=== PATIENT | female | born 1980 | race Caucasian/White ===

== ENCOUNTER 2017-12-17 19:29 | Inpatient (IN) | payer MEDICAID, OTHER ==
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
[2017-12-17 23:10] LABS: Amphetamine Screen,Urine Not Detected (NotDetected); Barbiturate Screen,Urine Not Detected (NotDetected); Benzodiazepines Screen,Urine Not Detected (NotDetected); Cocaine Screen,Urine Not Detected (NotDetected); Methadone Screen, Urine Not Detected (NotDetected); Opiate Screen,Urine Not Detected (NotDetected); Oxycodone Screen, Urine Not Detected (NotDetected); Phencyclidine Screen,Urine Not Detected (NotDetected); Tricyclic Antidepressant,Urine Not Detected (NotDetected); Urn Cannabinoid Scrn Detected (NotDetected)
[2017-12-18] MEDS ORDERED: ZIPRASIDONE 20 MG VIAL IM PRN (00:19)
[2017-12-18] MEDS ORDERED: MAG HYDROX/AL HYDROX/SIMETH 30 ML CUP PO PRN (00:19)
[2017-12-18] MEDS ORDERED: MAGNESIUM HYDROXIDE 2,400 MG/10 ML CUP PO PRN (00:19)
[2017-12-18] MEDS ORDERED: LORazepam 2 MG/ML INJ IM PRN (00:22)
[2017-12-18 01:29] LABS: Appearance,Urine Cloudy (Clear); Bacteria,Urine Moderate /hpf; Bilirubin,Urine Negative (Negative); Blood,Urine Small (Negative); Color,Urine Yellow; Glucose,Urine (UA) Negative (Negative); Ketones,Urine Negative (Negative); Leukocyte Esterase,Urine Small (Negative); Mucus,Urine Many /hpf; Nitrite,Urine Positive (Negative); Protein,Urine Trace (Negative); RBC,Urine 8 /hpf (0-5); Specific Gravity,Urine 1.013 (1.001-1.035); Squamous Epithelial Cell,Urine 5 /hpf (0-4); Urobilinogen,Urine <2.0 mg/dL (<2.0); WBC,Urine 12 /hpf (0-5)
[2017-12-18] MEDS: LORazepam 1 MG TAB PO PRN ×2 (05:28→14:25)
--- NOTE | 2017-12-18 05:46 | P.PN ---
Progress Note - Text Progress Note Date: 12/18/17 I interviewed the patient in the morning of 12/18/2017 at 5:30 in the morning upon RN request medical consult. Within the first 2 minutes of my interview and when I was just about to ask her about her medical history and she takes a prescription medications she became very paranoid and exploded started screaming throwing books around and rushed out of the room. Mental health unit RN was in the room with me during the interview. Patient will be evaluated from medical standpoint a later time once she is more mentally stable
[2017-12-18] MEDS ORDERED: NICOTINE 14MG/24HR PATCH TRANSDERM SCH (09:00)
--- NOTE | 2017-12-18 11:17 | P.HPMEDMHU ---
History of Present Illness H&P Date: 12/18/17 Chief Complaint: Paranoia This 37-year-old female with no history of medical problems that was admitted with paranoia. Patient was very aggressive with Dr. Prakash yesterday upon attempt to evaluate her. Review of Systems Denies any chest pain no palpitations no fever no chills no shortness of breath all 10 systems reviewed were negative except as mentioned in HPI Past Medical History Past Medical History: Hypertension Additional Past Medical History / Comment(s): IBS, ENDOMETRIOSIS, opiate addiction, ADHD, Hx of HTN but no meds. History of Any Multi-Drug Resistant Organisms: None Reported Past Surgical History: Tubal Ligation Additional Past Surgical History / Comment(s): LAPAROSCOPY, D & C, ORAL SURGERY Past Anesthesia/Blood Transfusion Reactions: Motion Sickness Past Psychological History: ADD/ADHD, Anxiety, Depression Smoking Status: Current every day smoker Past Alcohol Use History: Occasional Past Drug Use History: Marijuana, Opiates, Prescription Drug Abuse - Past Family History Father Family Medical History: Cancer Additional Family Medical History / Comment(s): Father at age 35 from cancer of the mouth. Mother Family Medical History: No Reported History Additional Family Medical History / Comment(s): Mother is age 70 with no major medical problems. Brother(s) Family Medical History: No Reported History Additional Family Medical History / Comment(s): Patient had 2 brothers. One of a motor vehicle accident at age 35 and 1 has no major medical problems. Patient has 1 sister with no major medical problems. Medications and Allergies Home Medications Medication Instructions Recorded Confirmed Type hydrOXYzine PAMOATE [Vistaril] 50 mg PO HS PRN 30 Days cap 12/01/15 01/18/16 Rx ARIPiprazole [Abilify] 30 mg PO DAILY #20 tab 01/27/16 Rx OLANZapine ODT [ZyPREXA Zydis] 5 mg PO QID PRN #120 tab 01/27/16 Rx Venlafaxine HCl ER [Effexor XR] 150 mg PO DAILY #30 cap.er.24h 01/27/16 Rx busPIRone HCl [Buspar] 15 mg PO TID #90 tab 01/27/16 Rx clonazePAM [KlonoPIN] 0.5 mg PO QID #120 tab 01/27/16 Rx hydrOXYzine PAMOATE [Vistaril] 50 mg PO HS PRN #60 cap 01/27/16 Rx Allergies Allergy/AdvReac Type Severity Reaction Status Date / Time No Known Allergies Allergy Verified 01/18/16 07:32 Physical Exam Vitals: Vital Signs Temp Pulse Pulse Resp BP BP Pulse Ox 12/18/17 01:43 97.6 F 83 16 145/88 12/18/17 01:00 98.6 F 71 20 135/65 99 12/17/17 19:42 97.9 F 93 18 148/84 98 Intake and Output 12/17/17 12/18/17 12/18/17 22:59 06:59 14:59 Other: Weight 117.934 kg 93.7 kg 93.7 kg - Constitutional General appearance: no acute distress - EENT Eyes: EOMI, PERRLA - Neck Neck: no lymphadenopathy, normal ROM - Respiratory Respiratory: bilateral: CTA - Cardiovascular Rhythm: regular Heart sounds: normal: S1, S2 ankle Peripheral Edema: absent: None leg Peripheral Edema: absent: None - Gastrointestinal General gastrointestinal: normal bowel sounds - Integumentary Integumentary: normal, no rash - Neurologic Neurologic: CNII-XII intact - Musculoskeletal Musculoskeletal: gait normal - Psychiatric Psychiatric: A&O x's 3, appropriate affect Cranial Nerve Examination - Cranial Nerves Cranial Nerve II- Optic: Intact Cranial Nerve III- Oculomotor: Intact Cranial Nerve IV- Trochlear: Intact Cranial Nerve V- Trigeminal: Intact Cranial Nerve - Abducens: Intact Cranial Nerve VII- Facial: Intact Cranial Nerve VIII- Auditory: Intact Cranial Nerve IX- Glossopharyngeal: Intact Cranial Nerve X- Vagus: Intact Cranial Nerve XI- Accessory: Intact Cranial Nerve XII- Hypoglossal: Intact Results Labs: Abnormal Lab Results - Last 24 Hours (Table) 12/17/17 12/17/17 Range/Units 22:46 22:46 Urine Appearance Cloudy H (Clear) Urine Protein Trace H (Negative) Urine Blood Small H (Negative) Urine Nitrite Positive H (Negative) Ur Leukocyte Esterase Small H (Negative) Urine RBC 8 H (0-5) /hpf Urine WBC 12 H (0-5) /hpf Ur Squamous Epith Cells 5 H (0-4) /hpf Urine Bacteria Moderate H (None) /hpf Urine Mucus Many H (None) /hpf U Marijuana (THC) Screen Detected H (NotDetected) Assessment and Plan (1) Delusion Narrative/Plan: per psych Current Visit: Yes Status: Acute Code(s): F22 - DELUSIONAL DISORDERS SNOMED Code(s): 4114353 (2) Suicidal ideation Narrative/Plan: Per psych Current Visit: Yes Status: Acute Code(s): R45.851 - SUICIDAL IDEATIONS SNOMED Code(s): 3725090
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
[2017-12-18] MEDS: LURASIDONE 40 MG TAB PO SCH (14:25)
[2017-12-18] MEDS: SERTRALINE 50 MG TAB PO SCH (14:25)
[2017-12-18] MEDS: NICOTINE 14MG/24HR PATCH TRANSDERM SCH (14:58)
[2017-12-18 16:26] VITALS: BMI 31.4
[2017-12-19] MEDS: LORazepam 1 MG TAB PO PRN ×3 (01:50→20:00)
[2017-12-19] MEDS: NICOTINE 14MG/24HR PATCH TRANSDERM SCH (07:59)
[2017-12-19] MEDS: LURASIDONE 40 MG TAB PO SCH (08:00)
[2017-12-19] MEDS: SERTRALINE 50 MG TAB PO SCH (08:00)
[2017-12-19 09:26] LABS: Basophils % (A) 0 %; Eosinophils # (A) 0.1 k/uL (0-0.7); Eosinophils % (A) 1 %; HCT 43.5 % (34.0-46.0); HGB 14.4 gm/dL (11.4-16.0); Lymphocytes % (A) 22 %; MCH 26.9 pg (25.0-35.0); MCV 81.6 fL (80.0-100.0); Monocytes # (A) 0.4 k/uL (0-1.0); Monocytes % (A) 4 %; Neutrophils # (A) 6.5 k/uL (1.3-7.7); Neutrophils % (A) 72 %; Platelet Count 299 k/uL (150-450); RBC 5.33 m/uL (3.80-5.40)
[2017-12-19 09:40] LABS: Blood Urea Nitrogen 20 mg/dL (7-17); Calcium 9.9 mg/dL (8.4-10.2); Carbon Dioxide 24 mmol/L (22-30); Chloride 104 mmol/L (98-107); Cholesterol 150 mg/dL (<200); Glucose 114 mg/dL (74-99); HDL Cholesterol 59 mg/dL (40-60); LDL Cholesterol,Calculated 72 mg/dL (0-99); Potassium 3.9 mmol/L (3.5-5.1); Triglycerides 96 mg/dL (<150)
[2017-12-19 10:13] LABS: Anion Gap 16 mmol/L; Sodium 144 mmol/L (137-145)
--- NOTE | 2017-12-19 11:53 | P.PN ---
Progress Note - Text Progress Note Date: 12/19/17 Interval History: Patient is a 37-year-old female who was seen today and reports that she was feeling suicidal and not sleeping on the outside and depressed. She states that she was very paranoid that her mother was trying to hurt her for insurance money, that others were trying to hurt her for a variety of different reasons. She states that she feels everyone here once her dad and also reported that when she is told she has a phone call and goes to the phone there is no one on the phone and feels that people here are also trying to do things to her. She states that she has not been taking her medicine as an outpatient and can't recall when she was last seen for follow-up care at [facility]. She states that she was taking narcotics on the outside as well. Patient states that she is not feeling currently suicidal. She states that she doesn't need to be in the hospital and she could do just as well and she was discharged and her meds were given to her as an outpatient. She states she slept last night because she "cooks stuff". She stated that everyone here needs to "stop your shit". Mental Status: Appearance/Attitude: Patient is casually dressed, makes intermittent eye contact and is superficially cooperative. Behavior: Patient does not display any psychomotor agitation or retardation but is easily irritated Speech/Language: Patient's speech is spontaneous and normal volume and rhythm and she is coherent. Thought Process: Patient is goal-directed there is no evidence of loose association or flight of ideas. Thought Content: Patient denies auditory or visual hallucinations but expresses numerous paranoid thoughts regarding her mother trying to hurt her for insurance money, that staff is doing things to her because everybody wants her . Patient states that she's slept last night because she took stuff and states that she doesn't need to be in the hospital she can have her medication as an outpatient. Suicidal/Homicidal Ideation: Patient denies any current suicidal thoughts and denies any current homicidal ideation Sensorium/Cognition: Patient is alert and oriented to person, place, and time and her recent and remote memory are grossly intact Mood/Affect: Patient's mood remains guarded and irritable and her affect is appropriate to her mood Insight/Judgment: Patient's insight and judgment are limited Assessment: Patient was placed on all one-to-one supervision yesterday due to her threats of hurting herself, she remains extremely paranoid feeling that everyone here is trying to harm her and wants her , she feels that she doesn 't need to be in the hospital and could easily be treated as an outpatient. Patient has been off of her medication for an unknown period of time and is been not seen in follow-up for an unknown period of time. Patient in the past was being treated with long-acting injectable Abilify. Patient reports that she has been taking her medication but sees no change on them. Plan: Patient will continue on with 2-40 mg in the morning, Zoloft 50 mg daily and we'll continue to assess her response and adjust medications to target her symptoms of depression and psychosis. Patient continues to require hospitalization to further stabilize her mood. We'll continue the patient on one-to-one supervision at this time.
[2017-12-19 16:29] LABS: Amorphous Sediment,Urine Rare /hpf; Appearance,Urine Cloudy (Clear); Bacteria,Urine Many /hpf; Bilirubin,Urine Negative (Negative); Blood,Urine Moderate (Negative); Color,Urine Yellow; Glucose,Urine (UA) Negative (Negative); Ketones,Urine Negative (Negative); Leukocyte Esterase,Urine Moderate (Negative); Mucus,Urine Many /hpf; Nitrite,Urine Positive (Negative); PH, Urine 6.5 (5.0-8.0); Protein,Urine 1+ (Negative); RBC,Urine 41 /hpf (0-5); Specific Gravity,Urine 1.026 (1.001-1.035); Urobilinogen,Urine <2.0 mg/dL (<2.0); WBC,Urine 14 /hpf (0-5)
[2017-12-20] MEDS: LORazepam 1 MG TAB PO PRN ×3 (03:05→20:45)
[2017-12-20] MEDS: NICOTINE 14MG/24HR PATCH TRANSDERM SCH (08:25)
[2017-12-20] MEDS: LURASIDONE 40 MG TAB PO SCH (08:25)
[2017-12-20] MEDS: SERTRALINE 50 MG TAB PO SCH (08:25)
--- NOTE | 2017-12-20 12:11 | P.PN ---
Progress Note - Text Progress Note Date: 12/20/17 Interval History: Patient is a 37-year-old female who was seen today and reports that she is sleeping and eating well. She states that she is trying to go to groups but is unable to because the other patients bother her. Patient states that she was using Bode's, Adipex and marijuana prior to her admission. Patient continues to report that people are trying to hurt her, is suspicious of patient's. She denied any current suicidal thoughts. Patient continues to also request that she be discharged stating that she is doing fine and doesn't need to be here. 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 Speech/Language: Patient's speech is spontaneous and normal volume and rhythm and she is coherent Thought Process: Patient is goal-directed there is no evidence of loose association or flight of ideas Thought Content: Patient denies any auditory or visual hallucinations, patient remains paranoid stating that she cannot go to groups because the other patients bother her, she is still suspicious of staff and other patients and still continues to feel that people are trying to hurt her. She reports that she was using Bode's, Adipex and marijuana on the outside prior to her admission. She states that she is sleeping and eating fine. She states that she is no longer feeling suicidal. Patient also states that she was working as a nurse one week prior to her admission in [facility]. Suicidal/Homicidal Ideation: She denies any current suicidal or homicidal ideation. Sensorium/Cognition: Patient is alert and oriented to person, place, and time and her recent and remote memory are grossly intact Mood/Affect: Patient's mood remains guarded and irritable and her affect is appropriate to her mood Insight/Judgment: Patient's insight and judgment are fair Assessment: Patient reports no further suicidal ideation, she states that she is unable to attend groups because the other patients bother her and she is suspicious of staff and others trying to hurt her. She states that she slept and ate well. 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 Patient also continues to request discharge, stating that there is nothing wrong with her. Patient repeat UA and he didn't show evidence of an infection she was begun on Keflex and a urine culture was also ordered. Plan: Patient will be discontinued from one-to-one supervision, her limited will be increased to 60 mg daily to target her paranoid ideation and continue on Zoloft 50 mg at this time I am not going to increase her antidepressant. Patient was encouraged to attend groups and activities. Patient also has a pending urine culture and has been placed on Keflex. Patient continues to require hospitalization to further target her paranoid ideation and depressed mood.
[2017-12-20] MEDS: CEPHALEXIN 500 MG CAP PO SCH (20:45)
[2017-12-21] MEDS: LORazepam 1 MG TAB PO PRN ×3 (03:39→20:06)
[2017-12-21] MEDS: ACETAMINOPHEN TAB 325 MG TAB PO PRN ×2 (03:39→20:05)
[2017-12-21] MEDS: CEPHALEXIN 500 MG CAP PO SCH ×2 (08:04→20:07)
[2017-12-21] MEDS: LURASIDONE 40 MG TAB PO SCH (08:05)
[2017-12-21] MEDS: NICOTINE 14MG/24HR PATCH TRANSDERM SCH (08:05)
[2017-12-21] MEDS: SERTRALINE 50 MG TAB PO SCH (08:05)
--- NOTE | 2017-12-21 12:42 | P.PN ---
Progress Note - Text Progress Note Date: 12/21/17 Interval History: Patient is a 37-year-old female who was seen today who reports that she fell asleep right away last evening after taking Ativan and felt that she did sleep okay. She felt that the environment here is better than last night and that she is less suspicious of her family. She thought that staff had been nicer to her. She states that she is less irritable. Patient has not been attending groups or activities stating that she dislikes them. She reports no suicidal thoughts and states she is feeling less depressed. Mental Status: Appearance/Attitude: Patient is casually dressed, makes intermittent eye contact and is superficially cooperative Behavior: Patient does not exhibit any psychomotor agitation or retardation. Speech/Language: Speech is spontaneous however she responds in brief statements with little elaboration, she speaks in a normal volume and rhythm and is coherent Thought Process: Patient does not exhibit any loose association or flight of ideas she is goal-directed but non-elaborative in her responses. Thought Content: Patient denies auditory or visual hallucinations and states that she thought the environment here was better last night and states that she is less suspicious of her family but cannot elaborate further. Patient states that she slept last evening, she reports her appetite is fair. She states that she is not going to groups or activities. Suicidal/Homicidal Ideation: Patient denies any suicidal or homicidal ideation at this time. Sensorium/Cognition: Patient is alert and oriented to person, place, and time and her recent and remote memory are grossly intact Mood/Affect: Patient's mood remains guarded and irritable and her affect is appropriate to her mood Insight/Judgment: Patient's insight and judgment are limited Assessment: Patient reports that the environment is better here last night she continues to not attend groups or activities and states that she is no longer having suicidal ideation and is feeling less depressed and less irritable. She thinks the people here have been nicer to her. Later she requested that [facility] paperwork be done and became upset when I discussed with her that I could not complete the paperwork only provide her with a note stating the dates that she was hospitalized. Patient has not been attending groups or activities. Patient slept 4 hours last evening. Plan: Patient will continue on Latuda 60 mg and Zoloft 50 mg and will add melatonin to assist with her sleep, patient continues to require hospitalization to further stabilize her mood and psychotic symptoms
[2017-12-21] MEDS: IBUPROFEN 200 MG TAB PO PRN ×2 (17:48→23:00)
[2017-12-21] MEDS: MELATONIN 3 MG TABLET PO SCH (20:06)
[2017-12-22] MEDS: LORazepam 1 MG TAB PO PRN ×3 (02:57→20:46)
[2017-12-22] MEDS: CEPHALEXIN 500 MG CAP PO SCH ×2 (08:07→20:46)
[2017-12-22] MEDS: LURASIDONE 40 MG TAB PO SCH (08:07)
[2017-12-22] MEDS: NICOTINE 14MG/24HR PATCH TRANSDERM SCH (08:07)
[2017-12-22] MEDS: SERTRALINE 50 MG TAB PO SCH (08:07)
[2017-12-22] MEDS: IBUPROFEN 200 MG TAB PO PRN (09:33)
--- NOTE | 2017-12-22 10:43 | P.PN ---
Progress Note - Text Progress Note Date: 12/22/17 Reviewed sensitivities for E. Coli UTI reviewed and it is sensitive to cefazolin so she can be treated with Keflex for 3 days with a non complicated UTI. She will completed treatment after her morning dose of Keflex on 12/23.
--- NOTE | 2017-12-22 12:37 | P.PN ---
Progress Note - Text Progress Note Date: 12/22/17 Interval History: Patient is a 37-year-old female who was seen today and she reports that she has been attending some groups. She states that she slept about 5 hours last night and took Ativan at 3 AM and is feeling slightly hung over this morning. She states that the panicky thoughts that she had before the people were trying to hurt her are no longer there. She states that she feels people have not been trying to hurt her here but they have been rude to her while she is been here. Patient denies any auditory hallucinations and states that she is not feeling paranoid and suspicious. She feels that her mood is more stable and she is not feeling depressed. Patient had not been taking any of her medications prior to admission nor had she been seen in follow -up for psychiatric care prior to her admission. She states that she had been buying Langley's and Adipex on the street as well as using marijuana and alcohol. Mental Status: Appearance/Attitude: Patient is casually dressed, makes good eye contact and is cooperative. Behavior: Patient does not exhibit any psychomotor agitation or retardation. Speech/Language: Patient's speech is spontaneous and of normal volume and rhythm and she is coherent. Thought Process: Patient is goal-directed there is no evidence of loose association or flight of ideas Thought Content: Patient denies any auditory hallucinations or visual hallucinations and no paranoid or delusional ideation is elicited. She reports that those panicky thoughts that she was having the people were trying to hurt her specifically her family, staff here are thoughts that she no longer has. She states that she thinks people of been rude to her here but not trying to harm her. Patient states that she had not been compliant with medication or follow-up prior to her discharge. Patient also admits to buying Langley's, Adipex from the street and using marijuana and alcohol prior to her admission. Patient reports that she woke up at 3 AM last evening and took Ativan to return to sleep but feels hung over this morning. Patient reports her appetite is good. Suicidal/Homicidal Ideation: Patient denies any suicidal or homicidal ideation at this time Sensorium/Cognition: Patient is alert and oriented to person, place, and time and her recent and remote memory are grossly intact Mood/Affect: Patient's mood is much less guarded, she reports she is feeling more stable and her affect is appropriate to her mood Insight/Judgment: Patient's insight and judgment are fair Assessment: Patient reports attending some groups, we discussed her use of Langley , marijuana, Adipex and alcohol and she was open to attending an outpatient rehab program and declined an inpatient program. She was also open to following up as an outpatient with counselng. Patient's urine culture was positive for E. coli and per the bilingual medical assistant she can continue on Keflex and till tomorrow morning's dose when it will be discontinued. Patient reports no side effects from the medication and states that she is no longer feeling paranoid, her mood is more stable. Plan: Patient will continue on Latuda 60 mg, Zoloft 50 mg and we discussed discharge tomorrow with follow-up to an outpatient rehab program as well as outpatient psychiatric follow-up. We will discontinue patient's Keflex after her morning dose tomorrow morning. Patient was agreeable with this plan.
[2017-12-22] MEDS: IBUPROFEN 400 MG TAB PO PRN (13:39)
[2017-12-22] MEDS: MELATONIN 3 MG TABLET PO SCH (20:46)
[2017-12-23 07:20] VITALS: BP 116/64; PULSE 73; RESP 16; TEMP 97.8
[2017-12-23] MEDS: LURASIDONE 40 MG TAB PO SCH (08:47)
[2017-12-23] MEDS: NICOTINE 14MG/24HR PATCH TRANSDERM SCH (08:48)
[2017-12-23] MEDS: SERTRALINE 50 MG TAB PO SCH (08:49)
[2017-12-23] MEDS: CEPHALEXIN 500 MG CAP PO SCH (08:49)
[2017-12-23] MEDS: IBUPROFEN 400 MG TAB PO PRN (08:50)
--- NOTE | 2017-12-23 10:34 | P.DS ---
Providers Date of admission: 12/18/17 00:01 Expected date of discharge: 12/23/17 Attending physician: Aimee Bacon MD Consults: 12/18/17 00:19 Consult Physician Routine Consulting Provider: Patric Salcedo Consult Reason/Comments: H and P, Eval and Tx, r/o metabolic disorder Do you want consulting provider notified?: Yes Primary care physician: Stated None Hospital Course: Discharge Diagnosis: Major depressive disorder, recurrent severe with psychotic features; opioid use disorder, mild; cannabis use disorder, mild Reason for Admission: Patient was brought to the emergency room by ethics officer stating that patient was asking the police officers to shoot her because she wants to . Patient also made some superficial cuts to her wrist. Patient also reported that everybody states that she is having crazy thoughts. She reported that she felt like she was picking up things that people aren't saying and feels that people are against her. She reported to me that she thought that her mother was trying to kill her to get her insurance benefits, she thought that everyone was out to get her. She felt that everyone hated her. Patient was unable to state whether she was suicidal saying "I don' t know". She could not report if she would be safe on the inpatient unit and not hurt herself. Stating "if I want to do it I want to get it done". Patient had ideas of reference on admission relating that she heard things on the radio and it was something to do with her. She denied any auditory or visual hallucinations on admission. Patient had not been taking her medications as an outpatient, had been using Currie's, marijuana and Adipex-P prior to her admission. Patient also reported to me that she can't recall the last time that she was [facility]. Patient has been admitted in the past to this hospital, and stated she didn't know if she had had suicide attempts in the past. Hospital Course: patient was admitted on a voluntary basis, placed on one-to- one suicide precautions and was ordered group and activity therapy. Routine laboratory studies as well as a medical consultation was obtained. Patient was agreeable to starting medicine and was begun on Latuda 40 mg and Zoloft 50 mg to target her symptoms. Patient after several days on the unit was able to calm off of one-to-one supervision. Patient initially was not attending groups or activities but eventually did begin to attend some of the groups and activities. Patient continued initially to express paranoid ideation thinking that the staff were against her, that people were rude to her and her Latuda was increased to 60 mg. Patient did not report any further suicidal ideation and became less guarded and less paranoid. Patient was also placed on melatonin 3 mg at bedtime to assist with her sleep. Patient reported no side effects from the medication, was not reporting any paranoid ideation no further suicidal ideation, was reporting no longer feeling as depressed and was less guarded. Patient was no longer irritable and had been participating in some groups and activities. Patient was treated for a urinary tract infection with Keflex in the course of treatment was completed in the hospital. Patient did not exhibit any withdrawal symptoms during her hospital admission. Patient felt that she was ready for discharge and was agreeable to [facility] for both [facility] care as well as substance use. Allergies No Known Allergies Allergy (Verified 12/23/17 09:00) Laboratory Last Values WBC 9.0 k/uL (3.8-10.6) 12/19/17 08:59 RBC 5.33 m/uL (3.80-5.40) 12/19/17 08:59 Hgb 14.4 gm/dL (11.4-16.0) 12/19/17 08:59 Hct 43.5 % (34.0-46.0) 12/19/17 08:59 MCV 81.6 fL (80.0-100.0) 12/19/17 08:59 MCH 26.9 pg (25.0-35.0) 12/19/17 08:59 MCHC 33.0 g/dL (31.0-37.0) 12/19/17 08:59 RDW 13.0 % (11.5-15.5) 12/19/17 08:59 Plt Count 299 k/uL (150-450) 12/19/17 08:59 Neutrophils % 72 % 12/19/17 08:59 Lymphocytes % 22 % 12/19/17 08:59 Monocytes % 4 % 12/19/17 08:59 Eosinophils % 1 % 12/19/17 08:59 Basophils % 0 % 12/19/17 08:59 Neutrophils # 6.5 k/uL (1.3-7.7) 12/19/17 08:59 Lymphocytes # 2.0 k/uL (1.0-4.8) 12/19/17 08:59 Monocytes # 0.4 k/uL (0-1.0) 12/19/17 08:59 Eosinophils # 0.1 k/uL (0-0.7) 12/19/17 08:59 Basophils # 0.0 k/uL (0-0.2) 12/19/17 08:59 Sodium 144 mmol/L (137-145) 12/19/17 08:59 Potassium 3.9 mmol/L (3.5-5.1) 12/19/17 08:59 Chloride 104 mmol/L (98-107) 12/19/17 08:59 Carbon Dioxide 24 mmol/L (22-30) 12/19/17 08:59 Anion Gap 16 mmol/L 12/19/17 08:59 BUN 20 mg/dL (7-17) H 12/19/17 08:59 Creatinine 0.70 mg/dL (0.52-1.04) 12/19/17 08:59 Est GFR (CKD-EPI)AfAm >90 (>60 ml/min/1.73 sqM) 12/19/17 08:59 Est GFR (CKD-EPI)NonAf >90 (>60 ml/min/1.73 sqM) 12/19/17 08:59 Glucose 114 mg/dL (74-99) H 12/19/17 08:[address] Glu mg/dL 97 12/19/17 08:59 Hemoglobin A1c 5.0 % (4.0-6.0) 12/19/17 08:59 Calcium 9.9 mg/dL (8.4-10.2) 12/19/17 08:59 Triglycerides 96 mg/dL (<150) 12/19/17 08:59 Cholesterol 150 mg/dL (<200) 12/19/17 08:59 LDL Cholesterol, Calc 72 mg/dL (0-99) 12/19/17 08:59 HDL Cholesterol 59 mg/dL (40-60) 12/19/17 08:59 TSH 0.915 mIU/L (0.465-4.680) 12/19/17 08:59 Urine Color Yellow 12/19/17 16:13 Urine Appearance Cloudy (Clear) H 12/19/17 16:13 Urine pH 6.5 (5.0-8.0) 12/19/17 16:13 Ur Specific [place] 1.026 (1.001-1.035) 12/19/17 16:13 Urine Protein 1+ (Negative) H 12/19/17 16:13 Urine Glucose (UA) Negative (Negative) 12/19/17 16:13 Urine Ketones Negative (Negative) 12/19/17 16:13 Urine Blood Moderate (Negative) H 12/19/17 16:13 Urine Nitrite Positive (Negative) H 12/19/17 16:13 Urine Bilirubin Negative (Negative) 12/19/17 16:13 Urine Urobilinogen <2.0 mg/dL (<2.0) 12/19/17 16:13 Ur Leukocyte Esterase Moderate (Negative) H 12/19/17 16:13 Urine RBC 41 /hpf (0-5) H 12/19/17 16:13 Urine WBC 14 /hpf (0-5) H 12/19/17 16:13 Ur Squamous Epith Cells 5 /hpf (0-4) H 12/17/17 22:46 Amorphous Sediment Rare /hpf (None) H 12/19/17 16:13 Urine Bacteria Many /hpf (None) H 12/19/17 16:13 Urine Mucus Many /hpf (None) H 12/19/17 16:13 Urine HCG, Qual Not Detected (Not Detectd) 12/17/17 22:46 Urine Opiates Screen Not Detected (NotDetected) 12/17/17 22:46 Ur Oxycodone Screen Not Detected (NotDetected) 12/17/17 22:46 Urine Methadone Screen Not Detected (NotDetected) 12/17/17 22:46 Ur Propoxyphene Screen Not Detected (NotDetected) 12/17/17 22:46 Ur Barbiturates Screen Not Detected (NotDetected) 12/17/17 22:46 U Tricyclic Antidepress Not Detected (NotDetected) 12/17/17 22:46 Ur Phencyclidine Scrn Not Detected (NotDetected) 12/17/17 22:46 Ur Amphetamines Screen Not Detected (NotDetected) 12/17/17 22:46 U Methamphetamines Scrn Not Detected (NotDetected) 12/17/17 22:46 U Benzodiazepines Scrn Not Detected (NotDetected) 12/17/17 22:46 Urine Cocaine Screen Not Detected (NotDetected) 12/17/17 22:46 U Marijuana (THC) Screen Detected (NotDetected) H 12/17/17 22:46 Discharge Mental Status: Appearance/Attitude: Patient is casually dressed, makes good eye contact and was cooperative. Behavior: Patient does not exhibit any psychomotor agitation or retardation. Speech/Language: Patient's speech was spontaneous of normal volume and rhythm and she is coherent. Thought Process: Patient was goal-directed there is no evidence of loose associations or flight of ideas. Thought Content: Patient denied any auditory or visual hallucinations and no delusions or paranoid ideation were elicited. Patient stated that she was no longer feeling suspicious of people and did not think that people were trying to hurt her. No ideas of reference were elicited. Patient reported that she was sleeping and eating well. Suicidal/Homicidal Ideation: Patient denied any current suicidal or homicidal ideation Sensorium/Cognition: Patient was alert and oriented to person, place, and time and her recent and remote memory were grossly intact. Mood/Affect: Patient's mood was less guarded, her affect was appropriate Insight/Judgment: Patient's insight and judgment are fair Risk Assessment: Patient's risk for self harm is moderate should she not follow- up with outpatient care, been noncompliant with medication and use drugs and/or alcohol Discharge Plan: Patient will return home, she will continue on the 2-60 mg in the morning with food, Zoloft 50 mg in the morning and melatonin 3 mg at bedtime. Patient will also be given a prescription for Vistaril 25 mg 3 times a day as needed for anxiety which the patient states that she is taken in the past with benefit. Patient was encouraged to be compliant with her medications and outpatient follow-up. Patient was also encouraged to remain sober and avoid the use of any alcohol or drugs. Patient Condition at Discharge: Stable Plan - Discharge Summary New Discharge Prescriptions: New hydrOXYzine PAMOATE [Vistaril] 25 mg PO TID PRN #20 cap PRN Reason: Anxiety Lurasidone HCl [Latuda] 60 mg PO DAILY #14 tab Melatonin 3 mg PO HS #28 tablet Sertraline [Zoloft] 50 mg PO DAILY #14 tab Discharge Medication List Lurasidone HCl [Latuda] 60 mg PO DAILY #14 tab 12/23/17 [Rx] Melatonin 3 mg PO HS #28 tablet 12/23/17 [Rx] Sertraline [Zoloft] 50 mg PO DAILY #14 tab 12/23/17 [Rx] hydrOXYzine PAMOATE [Vistaril] 25 mg PO TID PRN #20 cap 12/23/17 [Rx] Follow up Appointment(s)/Referral(s): [facility] [Outside] - 12/30/17 9:00 am (12/30/17 at 9am with Janis) None,Stated [Primary Care Provider] - 1-2 days Patient Instructions/Handouts: How to Stop Smoking (DC), Depression (DC), Suicide Prevention for Adults (DC) Activity/Diet/Wound Care/Special Instructions: Keep your follow-up appointment as scheduled and take all medications as prescribed. Do not drink alcohol or use any street drugs. No access to guns.Call the crisis line if needed . Discharge Disposition: HOME SELF-CARE
== END 2017-12-23 11:11 | disposition home or self-care (01) | DRG 885 ==
LOC: EC 19:29 → 3MHU 12-18 00:01
PROVIDERS: ADMIT Psychiatry & Neurology Psychiatry; ATTEND Psychiatry & Neurology Psychiatry
DX: F33.3 Major depressive disorder, recurrent, severe with psychotic symptoms (principal); R45.851 Suicidal ideations; N39.0 Urinary tract infection, site not specified; F12.90 Cannabis use, unspecified, uncomplicated; M54.30 Sciatica, unspecified side; B96.20 Unspecified Escherichia coli [E. coli] as the cause of diseases classified elsewhere; I10 Essential (primary) hypertension; F90.9 Attention-deficit hyperactivity disorder, unspecified type; F11.10 Opioid abuse, uncomplicated; F17.200 Nicotine dependence, unspecified, uncomplicated; S61.519A Laceration without foreign body of unspecified wrist, initial encounter; K58.9 Irritable bowel syndrome, unspecified; Z91.5 Personal history of self-harm; Z79.899 Other long term (current) drug therapy; Z80.8 Family history of malignant neoplasm of other organs or systems
CPT/HCPCS: 80048; 80061; 80306; 81001; 81025; 82075; 83036; 84443; 85025; 87077; 87086; 87186; 99285

== ENCOUNTER 2017-12-29 14:48 | Inpatient (IN) | payer MEDICAID ==
[2017-12-29] MEDS ORDERED: ZIPRASIDONE 20 MG VIAL IM PRN (18:12)
[2017-12-29] MEDS ORDERED: MAG HYDROX/AL HYDROX/SIMETH 30 ML CUP PO PRN (18:12)
[2017-12-29] MEDS ORDERED: MAGNESIUM HYDROXIDE 2,400 MG/10 ML CUP PO PRN (18:12)
[2017-12-29] MEDS: NICOTINE 14MG/24HR PATCH TRANSDERM SCH (19:02)
[2017-12-29] MEDS: LORazepam 1 MG TAB PO PRN (19:05)
--- NOTE | 2017-12-29 20:58 | P.HPMEDMHU ---
History of Present Illness H&P Date: 12/29/17 Chief Complaint: paranoia 37 y/o femalebolivar was admitted with paranoia. She says she was recently discharged from [facility]. She sas the medications caused her to have facial droop so she stopped it.Since then she has become increasingly paranoid. Review of Systems no chest pain, no nausea, no weight loss all 10 systems reviewed were negative except what was mentioned with HPI Past Medical History Past Medical History: Hypertension Additional Past Medical History / Comment(s): IBS, ENDOMETRIOSIS, opiate addiction, ADHD, Hx of HTN but no meds; Low back pain radiating down R leg. History of Any Multi-Drug Resistant Organisms: None Reported Past Surgical History: Tubal Ligation Additional Past Surgical History / Comment(s): LAPAROSCOPY, D & C, ORAL SURGERY Past Anesthesia/Blood Transfusion Reactions: Motion Sickness Past Psychological History: ADD/ADHD, Anxiety, Depression Additional Psychological History / Comment(s): no treatment Smoking Status: Current every day smoker Past Alcohol Use History: Occasional Additional Past Alcohol Use History / Comment(s): Patient is a smoker one pack per day since she was 12 years of age. She states she smokes marijuana at night to help her relax. She states she hasn't opiate addiction and is currently on Buprenorphine. She states she uses alcohol occasionally. Patient has been for 15 years and has been for the last 2-3 weeks. She has 3 children and they're with her mom. Past Drug Use History: Marijuana, Opiates, Prescription Drug Abuse Additional Drug Use History / Comment(s): PT STATES HX OF PRESCRIPTION PAIN MEDS.PATIENT ON BUPRENORPHINE REPLACEMENT; Pt. used MJ one month ago and uses it ocassionally. - Past Family History Father Family Medical History: Cancer Additional Family Medical History / Comment(s): Father at age 35 from cancer of the mouth. Mother Family Medical History: No Reported History Additional Family Medical History / Comment(s): Mother is age 70 with no major medical problems. Brother(s) Family Medical History: No Reported History Additional Family Medical History / Comment(s): Patient had 2 brothers. One of a motor vehicle accident at age 35 and 1 has no major medical problems. Patient has 1 sister with no major medical problems. Medications and Allergies Home Medications Medication Instructions Recorded Confirmed Type Lurasidone HCl [Latuda] 60 mg PO DAILY #14 tab 12/23/17 Rx Melatonin 3 mg PO HS #28 tablet 12/23/17 Rx Sertraline [Zoloft] 50 mg PO DAILY #14 tab 12/23/17 Rx hydrOXYzine PAMOATE [Vistaril] 25 mg PO TID PRN #20 cap 12/23/17 Rx Allergies Allergy/AdvReac Type Severity Reaction Status Date / Time No Known Allergies Allergy Verified 12/23/17 09:00 Physical Exam Vitals: Vital Signs Temp Pulse Resp BP 12/29/17 18:09 98.5 F 59 L 16 138/78 Intake and Output 12/29/17 12/29/17 12/29/17 06:59 14:59 22:59 Other: Weight 95.736 kg - Constitutional General appearance: no acute distress - EENT Eyes: EOMI, PERRLA - Neck Neck: no lymphadenopathy, no rigidity - Respiratory Respiratory: bilateral: CTA, negative: rales, rhonchi, wheezing, prolonged expiration - Cardiovascular Rhythm: regular Heart sounds: normal: S1, S2 foot Peripheral Edema: absent: None leg Peripheral Edema: absent: None Cranial Nerve Examination - Cranial Nerves Cranial Nerve II- Optic: Intact Cranial Nerve III- Oculomotor: Intact Cranial Nerve IV- Trochlear: Intact Cranial Nerve V- Trigeminal: Intact Cranial Nerve - Abducens: Intact Cranial Nerve VII- Facial: Intact Cranial Nerve VIII- Auditory: Intact Cranial Nerve IX- Glossopharyngeal: Intact Cranial Nerve X- Vagus: Intact Cranial Nerve XI- Accessory: Intact Cranial Nerve XII- Hypoglossal: Intact Assessment and Plan (1) Delusion Narrative/Plan: per psych Current Visit: No Status: Acute Code(s): F22 - DELUSIONAL DISORDERS SNOMED Code(s): 8764483
[2017-12-29] MEDS: hydrOXYzine PAMOATE 25 MG CAP PO PRN (22:41)
[2017-12-30] MEDS: NICOTINE 14MG/24HR PATCH TRANSDERM SCH (08:27)
[2017-12-30] MEDS ORDERED: SERTRALINE 50 MG TAB PO SCH (09:00)
[2017-12-30 09:26] LABS: ALT 25 U/L (9-52); AST 17 U/L (14-36); Albumin 4.3 g/dL (3.5-5.0); Alkaline Phosphatase 60 U/L (38-126); Anion Gap 12 mmol/L; Blood Urea Nitrogen 12 mg/dL (7-17); Calcium 9.5 mg/dL (8.4-10.2); Carbon Dioxide 25 mmol/L (22-30); Chloride 105 mmol/L (98-107); Glucose 111 mg/dL (74-99); Potassium 4.4 mmol/L (3.5-5.1); Sodium 142 mmol/L (137-145); Total Bilirubin 0.5 mg/dL (0.2-1.3); Total Protein 7.1 g/dL (6.3-8.2)
[2017-12-30] MEDS: ACETAMINOPHEN TAB 325 MG TAB PO PRN (10:37)
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
[2017-12-30] MEDS: ARIPiprazole 10 MG TAB PO SCH (12:48)
[2017-12-30] MEDS: LORazepam 1 MG TAB PO PRN ×2 (14:31→22:02)
[2017-12-30] MEDS: IBUPROFEN 400 MG TAB PO PRN (19:48)
[2017-12-30] MEDS: hydrOXYzine PAMOATE 25 MG CAP PO PRN (22:02)
[2017-12-31] MEDS: LORazepam 1 MG TAB PO PRN ×3 (05:18→19:56)
[2017-12-31 05:27] VITALS: RESP 16
[2017-12-31] MEDS: ARIPiprazole 10 MG TAB PO SCH (09:05)
[2017-12-31] MEDS: NICOTINE 14MG/24HR PATCH TRANSDERM SCH (09:05)
[2017-12-31] MEDS: IBUPROFEN 400 MG TAB PO PRN ×2 (09:06→18:33)
[2017-12-31] MEDS ORDERED: ARIPiprazole 400 MG VIAL (NO CHARGE) IM ONE (09:25)
--- NOTE | 2017-12-31 09:30 | P.PN ---
Progress Note - Text Progress Note Date: 12/31/17 Interval History: Patient is a 37-year-old female who was seen today and she reports that she knows that her thoughts that the family is trying to kill her for insurance money make no sense, she states that when she spoke to her sister last evening her sister told her the same thing and the patient states she is not sure why she had those thoughts. Patient stated that staff is treating her nicer this time and was surprised to find that they have been treating her the same way the last time. Patient states that she slept fairly well last evening. She reportscurrent suicidal ideation and no side effects from the medication. Mental Status: Appearance/Attitude: Patient is casually dressed, makes good eye contact and is cooperative. Behavior: Patient does not exhibit any psychomotor agitation or retardation. Speech/Language: Patient's speech is spontaneous of normal volume and rhythm and she is coherent. Thought Process: Patient is goal-directed there is no loose association or flight of ideas Thought Content: Patient denies any auditory or visual hallucinations, she is beginning to question the paranoid ideation that she had regarding her family wanting to kill her for insurance money. She is also questioning why the staff' s nicer to her this time then last admission. Patient states that she slept fairly well and her appetite is good. She reports no side effects from the medication and feels that she is doing better on the Abilify. Suicidal/Homicidal Ideation: Patient denied any current suicidal or homicidal ideation Sensorium/Cognition: Patient is alert and oriented to person, place, and time and her recent and remote memory are grossly intact. Mood/Affect: Mood is less guarded and her affect is honeycutt Insight/Judgment: Patient's insight and judgment are fair Assessment: Patient is questioning the paranoid ideation that she had about her family wanting to kill her for insurance money, was to surprised to find that staff was treating her nicer this time, she states that she is seeing that her thoughts made no sense. Patient reports no current suicidal ideation and reports that she is not feeling depressed. Patient reports that her appetite and sleep are good. She reports no side effects from the medication and wishes to continue with the injectable long-acting Abilify. Plan: Patient will continue on Abilify 10 mg orally and will receive Abilify Maintenna 300 mg today. Patient will continue on Vistaril as needed for anxiety. Patient was also ordered Motrin as needed for complaints of pain. Patient continues to require hospitalization to further stabilize her mood and her psychotic symptoms.
[2017-12-31] MEDS: hydrOXYzine PAMOATE 25 MG CAP PO PRN ×2 (10:36→18:33)
[2018-01-01] MEDS: hydrOXYzine PAMOATE 25 MG CAP PO PRN ×3 (03:24→18:41)
[2018-01-01] MEDS: LORazepam 1 MG TAB PO PRN ×3 (07:05→22:09)
[2018-01-01] MEDS: ACETAMINOPHEN TAB 325 MG TAB PO PRN ×3 (07:48→21:13)
[2018-01-01] MEDS: IBUPROFEN 400 MG TAB PO PRN ×3 (07:49→21:14)
[2018-01-01] MEDS: NICOTINE 14MG/24HR PATCH TRANSDERM SCH (09:40)
[2018-01-01] MEDS: ARIPiprazole 10 MG TAB PO SCH (09:41)
--- NOTE | 2018-01-01 10:53 | P.PN ---
Progress Note - Text Progress Note Date: 01/01/18 Interval History: Patient is a 37-year-old female who was seen today and she reports that she is no longer paranoid about her family having an insurance policy on her and that they're trying to kill her to obtain money. Patient states she does not know why she has those thoughts. She does not feel that staff is out to get her. Patient states that she is anxious being here and wants to return home because she has to go to work on Tuesday. Patient reports that she is not having any suicidal thoughts and states that she slept well. She reports no side effects from the medication. Mental Status: Appearance/Attitude: Patient is casually dressed, makes good eye contact and is cooperative. Behavior: Patient does not exhibit any psychomotor agitation or retardation. Speech/Language: Patient's speech is spontaneous of normal volume and rhythm and she is coherent. Thought Process: Patient is goal-directed there is no evidence of loose association or flight of ideas. Thought Content: Patient denies any auditory or visual hallucination and no delusions or paranoid ideation or elicited, patient states that she sees that the thought that her family is out to kill her for an insurance policy money is not a realistic idea, she reports that she does not feel that staff is trying to hurt her or anyone else. Patient states that she is sleeping and eating well. She reports no side effects from the medication. Suicidal/Homicidal Ideation: She denies any current suicidal or homicidal ideation. Sensorium/Cognition: Patient is alert and oriented to person, place, time and her recent and remote memory are grossly intact. Mood/Affect: Patient's mood is less irritable, she reports feeling anxious and her affect is appropriate to her mood Insight/Judgment: Patient's insight and judgment are fair Assessment: Patient reports that she is no longer having paranoid ideation, she reports no side effects from the Abilify. Patient states that she is not having any suicidal ideation and is anxious about being in the hospital and is wanting to go home. Patient states that she has been attending groups and activities and is going to try journaling to assist with her anxiety. Patient states that she is sleeping and eating well. Plan: Patient will continue on Abilify 10 mg for 14 days, she was given Abilify 300 mg long-acting injectable yesterday. We will change her Vistaril 25 mg to 4 times a day to target her anxiety. Patient continues to require hospitalization to further stabilize her mood and her psychotic symptoms.
[2018-01-02] MEDS: hydrOXYzine PAMOATE 25 MG CAP PO PRN ×2 (02:01→08:42)
[2018-01-02 02:02] VITALS: TEMP 97.5
[2018-01-02] MEDS: LORazepam 1 MG TAB PO PRN ×2 (06:52→14:28)
[2018-01-02] MEDS: IBUPROFEN 400 MG TAB PO PRN ×2 (06:52→12:30)
[2018-01-02 06:57] VITALS: BP 134/80; PULSE 70
[2018-01-02] MEDS: ARIPiprazole 10 MG TAB PO SCH (08:42)
[2018-01-02] MEDS: NICOTINE 14MG/24HR PATCH TRANSDERM SCH (08:42)
--- NOTE | 2018-01-02 11:29 | P.DS ---
Providers Date of admission: 12/29/17 17:38 Expected date of discharge: 01/02/18 Attending physician: Aimee aBcon MD Consults: 12/29/17 18:12 Consult Physician Routine Consulting Provider: Patric Salcedo Consult Reason/Comments: H & P and medical care Do you want consulting provider notified?: Yes Primary care physician: Stated None Hospital Course: Discharge Diagnosis: Major depressive disorder, recurrent, severe with psychotic features Reason for Admission: Patient is a 37-year-old female who was brought to the emergency room on a petition and a certification from [facility] where she had been seen for an appointment and was recommended for admission. Patient had recently been discharged from the hospital on December 23, she states that she did not continue her low to do because it was making her mouth turned sideways. She states that she decrease the dose and then eventually just discontinued it. She states that she did continue taking the Zoloft 50 mg. Patient states that she has had a return of suicidal thoughts as well as paranoia. Patient continues to question whether her family has a life insurance policy out on her and that they are trying to kill her to obtain the money. Patient states that she began having paranoid ideation after she was placed on Suboxone and she is unsure of when that was. She states that the depressive symptoms she's had started earlier about 7 years ago for the first time. She reports that she is reporting not hearing voices, is feeling depressed with little energy or interest to do things. She states that she is having suicidal ideation but has no plan or intent to act at this time. Patient states when she was released that she did begin drinking again and had been drinking several beers last week as well as several shots of liquor. Patient states that she had used alcohol heavily this past summer. She states that she used marijuana daily until most recently. Patient had been using Vicodin and [place]'s as well as Adipex-P prior to her last admission. Patient states that she is not used opiates or amphetamines since her discharge. Patient states that she's been on Celexa, Seroquel in the past as well as Abilify. She states that she feels the Abilify had been helpful in treating her depression and paranoia. Patient does not endorse any auditory hallucinations but does present with paranoid ideation feeling that her family is trying to kill her to obtain insurance money. Patient also reports that she's having suicidal ideation and feeling depressed. Patient does not endorse any manic symptoms and does have a history of abuse of opioids, marijuana and amphetamines. Mental status on Admission: Appearance/Attitude: Patient is casually dressed, makes good eye contact and is cooperative. Behavior: Patient does not exhibit any psychomotor agitation or retardation. Speech/Language: [place] is spontaneous of normal volume and rhythm and she is coherent Thought Process: Patient is goal-directed, there is no evidence of loose association or flight of ideas. Thought Content: Patient denies any auditory hallucinations or visual hallucinations and states that she is paranoid that her parents are trying to kill her for her insurance policy money that they took out on her. Patient states that she is also feeling suicidal and states that she did not continue taking her Latuda because it made her mouth go sideways. She states that she did continue taking the Zoloft after she was discharged. Suicidal/Homicidal Ideation: Patient reports that she was having suicidal ideation before coming into the hospital but denies it currently and denies any current homicidal ideation. Sensorium/Cognition: Patient is alert and oriented to person, place, and time and her recent and remote memory are grossly intact. Mood/Affect: Patient's mood is guarded, irritable and her affect is appropriate to her mood Insight/Judgment: Patient's insight and judgment are fair Hospital Course: Patient was admitted on a voluntary basis, placed on routine precautions and group and activity therapy were ordered. A comprehensive metabolic panel was ordered as prior blood work have been done at [place] prior to her transfer to this hospital, a medical consultation was also ordered. Patient stated that on the Latuda she began to have side effects of her mouth twisting and so she discontinued the medication. Patient had a recurrence of her paranoid ideation as well as her suicidal thoughts. Patient and I discussed other treatment options and she was agreeable to beginning Abilify again. Patient was placed on Abilify 10 mg daily and we discussed the option of long-acting injectable again and the patient was agreeable to this plan as well. Patient was also given ibuprofen for her pain complaints and Vistaril for her complaints of anxiety. Patient improved on the Abilify no longer expressing paranoid ideation especially regarding her family and she reported no longer feeling depressed or having suicidal ideation. Patient felt that she was doing better on the Abilify then she had been doing on the Latuda. Patient was not restarted on any antidepressants at this time. Patient received Abilify Maintenna 300 mg on December 31. Patient felt she was ready to return home. Allergies No Known Allergies Allergy (Verified 12/30/17 04:34) Laboratory Last Values Sodium 142 mmol/L (137-145) 12/30/17 08:47 Potassium 4.4 mmol/L (3.5-5.1) 12/30/17 08:47 Chloride 105 mmol/L (98-107) 12/30/17 08:47 Carbon Dioxide 25 mmol/L (22-30) 12/30/17 08:47 Anion Gap 12 mmol/L 12/30/17 08:47 BUN 12 mg/dL (7-17) 12/30/17 08:47 Creatinine 0.67 mg/dL (0.52-1.04) 12/30/17 08:47 Est GFR (CKD-EPI)AfAm >90 (>60 ml/min/1.73 sqM) 12/30/17 08:47 Est GFR (CKD-EPI)NonAf >90 (>60 ml/min/1.73 sqM) 12/30/17 08:47 Glucose 111 mg/dL (74-99) H 12/30/17 08:47 Calcium 9.5 mg/dL (8.4-10.2) 12/30/17 08:47 Total Bilirubin 0.5 mg/dL (0.2-1.3) 12/30/17 08:47 AST 17 U/L (14-36) 12/30/17 08:47 ALT 25 U/L (9-52) 12/30/17 08:47 Alkaline Phosphatase 60 U/L (38-126) 12/30/17 08:47 Total Protein 7.1 g/dL (6.3-8.2) 12/30/17 08:47 Albumin 4.3 g/dL (3.5-5.0) 12/30/17 08:47 Discharge Mental Status: Appearance/Attitude: Patient was casually dressed, made good eye contact and was cooperative. Behavior: Patient did not exhibit any psychomotor agitation or retardation. Speech/Language: Patient's speech was spontaneous of normal volume and rhythm and she was coherent. Thought Process: Patient was goal-directed there is no evidence of loose association or flight of ideas. Thought Content: Patient denied any auditory or visual hallucinations and no delusions or paranoid ideation were elicited. Patient agreed that her thoughts that her family was trying to hurt her not have a basis in reality. Patient also did not feel that staff was trying to harm her. Patient no longer felt depressed and states she had been sleeping well at home. She discussed her concerns about her and their relationship. Patient reported that she was sleeping and eating well. Suicidal/Homicidal Ideation: Patient denies any current suicidal or homicidal ideation Sensorium/Cognition: Patient is alert and oriented to person, place, and time and her recent and remote memory are grossly intact. Mood/Affect: Patient's mood is less depressed and her affect is appropriate Insight/Judgment: Patient's insight and judgment are fair Risk Assessment: Patient's risk for readmission with moderate should the patient not be compliant with medication or restart using alcohol and/or drugs. Discharge Plan: Patient will return home, she will continue on Abilify 10 mg orally for 11 more days then discontinue. Patient's next injection of Abilify Maintenna 300 mg is due on January 28. Patient will be given prescriptions for both of these medications. Patient will also continue on Vistaril 25 mg on an as-needed basis for anxiety and she will be given a prescription for this as well. Patient was encouraged to be compliant with medication and follow-up appointments as well as to avoid all alcohol or drugs. Patient will follow up with [facility] in [facility] Patient Condition at Discharge: Stable Plan - Discharge Summary Discharge Rx Participant: No New Discharge Prescriptions: New ARIPiprazole [Abilify] 10 mg PO DAILY #11 tab ARIPiprazole [Abilify Maintena] 300 mg IM QMONTH #1 suser.syr Ibuprofen [Motrin] 400 mg PO Q6HR PRN tab PRN Reason: Pain Continue hydrOXYzine PAMOATE [Vistaril] 25 mg PO TID PRN #20 cap PRN Reason: Anxiety Melatonin 3 mg PO HS #28 tablet Discontinued Lurasidone HCl [Latuda] 60 mg PO DAILY #14 tab Sertraline [Zoloft] 50 mg PO DAILY #14 tab Discharge Medication List ARIPiprazole [Abilify Maintena] 300 mg IM QMONTH #1 suser.syr 01/02/18 [Rx] ARIPiprazole [Abilify] 10 mg PO DAILY #11 tab 01/02/18 [Rx] Ibuprofen [Motrin] 400 mg PO Q6HR PRN tab 01/02/18 [Rx] Melatonin 3 mg PO HS #28 tablet 01/02/18 [Rx] hydrOXYzine PAMOATE [Vistaril] 25 mg PO TID PRN #20 cap 01/02/18 [Rx] Follow up Appointment(s)/Referral(s): [facility] [Outside] - 01/04/18 1:00 pm (Lamont Barry) [facility] Patient Instructions/Handouts: How to Stop Smoking (DC) Activity/Diet/Wound Care/Special Instructions: Keep your follow up appointments as schedule. Continue medications as prescribed. Your last Abilify Maintena was administered on 12/31/2017 at 0954 in [place]. No guns or weapons. No alchol or street drugs. Crisis line if needed . Discharge Disposition: HOME SELF-CARE
== END 2018-01-02 15:45 | disposition home or self-care (01) | DRG 885 ==
LOC: 3MHU 17:38
PROVIDERS: ADMIT Psychiatry & Neurology Psychiatry; ATTEND Psychiatry & Neurology Psychiatry
DX: F33.3 Major depressive disorder, recurrent, severe with psychotic symptoms (principal); R45.851 Suicidal ideations; F11.90 Opioid use, unspecified, uncomplicated; F41.9 Anxiety disorder, unspecified; M54.30 Sciatica, unspecified side; R45.4 Irritability and anger; Z79.899 Other long term (current) drug therapy; F17.200 Nicotine dependence, unspecified, uncomplicated; Z91.19 Patient's noncompliance with other medical treatment and regimen; Z98.51 Tubal ligation status
CPT/HCPCS: 80053

== ENCOUNTER 2019-08-04 10:17 | Inpatient (IN) | payer MEDICAID, OTHER ==
--- NOTE | 2019-08-04 11:53 | ED ---
Psych HPI - General Source: patient Mode of arrival: ambulatory <Betty Smiley - Last Filed: 08/04/19 18:42> <Andre Caballero - Last Filed: 08/04/19 19:14> - General Chief Complaint: Psychiatric Symptoms Stated Complaint: Mental health Time Seen by Provider: 08/04/19 11:32 - History of Present Illness Initial Comments: 39-year-old female presents today for chief complaint of "I'm going to have a breakdown". Patient states she's history of major depression with psychosis. She states she feels like she is heading in the direction of psychosis. She states she is now paranoid that people including her children are out to get her. Patient states this has happened in the past. Patient states she's a lot of life stressors including monetary and relationship stressors. Patient denies feeling unsafe at home. Patient denies any homicidal or suicidal ideation. Patient voluntarily came to the [facility] for psychiatric evaluation. Patient states she just began treatment for depression with Wellbutrin. Patient states she does see a counselor. Patient denies any recent fever, chills, shortness of breath, chest pain, back pain, abdominal pain, nausea or vomiting, numbness or tingling, dysuria or hematuria, constipation or diarrhea, headaches or visual changes, or any other complaints. (Betty Smiley) - Related Data Previous Rx's Medication Instructions Recorded ARIPiprazole [Abilify Maintena] 300 mg IM QMONTH #1 suser.syr 01/02/18 ARIPiprazole [Abilify] 10 mg PO DAILY #11 tab 01/02/18 Ibuprofen [Motrin] 400 mg PO Q6HR PRN tab 01/02/18 Melatonin 3 mg PO HS #28 tablet 01/02/18 hydrOXYzine PAMOATE [Vistaril] 25 mg PO TID PRN #20 cap 01/02/18 Allergies Allergy/AdvReac Type Severity Reaction Status Date / Time No Known Allergies Allergy Verified 12/30/17 04:34 Review of Systems ROS Other: All systems not noted in ROS Statement are negative. <Betty Smiley - Last Filed: 08/04/19 18:42> ROS Other: All systems not noted in ROS Statement are negative. <Andre Caballero - Last Filed: 12/07/19 19:14> ROS Statement: Those systems with pertinent positive or pertinent negative responses have been documented in the HPI. Past Medical History Past Medical History: Hypertension Additional Past Medical History / Comment(s): IBS, ENDOMETRIOSIS, opiate addiction, ADHD, Hx of HTN but no meds; Low back pain radiating down R leg. History of Any Multi-Drug Resistant Organisms: None Reported Past Surgical History: Tubal Ligation Additional Past Surgical History / Comment(s): LAPAROSCOPY, D & C, ORAL SURGERY Past Anesthesia/Blood Transfusion Reactions: Motion Sickness Past Psychological History: ADD/ADHD, Anxiety, Depression Smoking Status: Current every day smoker Past Alcohol Use History: None Reported Past Drug Use History: None Reported - Past Family History Father Family Medical History: Cancer Additional Family Medical History / Comment(s): Father at age 35 from cancer of the mouth. Mother Family Medical History: No Reported History Additional Family Medical History / Comment(s): Mother is age 70 with no major medical problems. Brother(s) Family Medical History: No Reported History Additional Family Medical History / Comment(s): Patient had 2 brothers. One of a motor vehicle accident at age 35 and 1 has no major medical problems. Patient has 1 sister with no major medical problems. <ChristianjuliannaBetty - Last Filed: 08/04/19 18:42> General Exam Limitations: no limitations <ChristianjuliannaBetty - Last Filed: 08/04/19 18:42> - General Exam Comments Initial Comments: General: The patient is awake and alert, in no distress Eye: Pupils are equal, round and reactive to light, extra-ocular movements are intact. No nystagmus. There is normal conjunctiva bilaterally. No signs of icterus. Ears, nose, mouth and throat: There are moist mucous membranes and no oral lesions. Cardiovascular: There is a regular rate and rhythm. No murmur, rub or gallop is appreciated. Respiratory: Lungs are clear to auscultation, respirations are non-labored, breath sounds are equal. No wheezes, stridor, rales, or rhonchi. Gastrointestinal: Soft, non-distended, non-tender abdomen without masses or organomegaly noted. There is no rebound or guarding present. Musculoskeletal: Normal ROM, no tenderness. Strength 5/5. Sensation intact. Radial pulses equal bilaterally 2+. Neurological: A&O x 3. CN II-XII intact grossly, There are no obvious motor or sensory deficits. Coordination appears grossly intact. Speech is normal. Skin: Skin is warm and dry and no rashes or lesions are noted. Psychiatric: Cooperative, tearful during history (Betty Smiley) Course <Andre Caballero - Last Filed: 08/04/19 19:14> Vital Signs 08/04/19 08/04/19 08/04/19 11:13 11:44 13:57 Temperature 98.0 F 97.9 F Pulse Rate 76 76 73 Respiratory 19 16 Rate Blood Pressure 130/85 138/92 141/78 O2 Sat by Pulse 98 100 100 Oximetry - Reevaluation(s) Reevaluation #1: 08/04/19 19:14 PT supervision: I personally did evaluate this case and did discuss the findings review (Andre Caballero) Medical Decision Making <Betty Smiley - Last Filed: 08/04/19 18:42> - Medical Decision Making 39-year-old female presenting today for chief complaint of concern for developing pyschosis, increased depression. Patient is not appear in a psychosis however appears depressed tearful during history taking. Exam unremarkable no other complaints. Patient was medically cleared for EPS evaluation who recommended admission patient will voluntarily sign in for psychiatric care. Patient transferred to floor in stable condition appearing well (Betty Smiley) - Lab Data Lab Results 08/04/19 08/04/19 Range/Units 12:12 12:12 Urine Color Yellow Urine Appearance Clear (Clear) Urine pH 6.5 (5.0-8.0) Ur Specific [place] 1.009 (1.001-1.035) Urine Protein Negative (Negative) Urine Glucose (UA) Negative (Negative) Urine Ketones Negative (Negative) Urine Blood Trace H (Negative) Urine Nitrite Negative (Negative) Urine Bilirubin Negative (Negative) Urine Urobilinogen <2.0 (<2.0) mg/dL Ur Leukocyte Esterase Negative (Negative) Urine RBC 3 (0-5) /hpf Urine WBC <1 (0-5) /hpf Ur Squamous Epith Cells 1 (0-4) /hpf Urine Bacteria Rare H (None) /hpf Urine Mucus Occasional H (None) /hpf Urine HCG, Qual Not Detected (Not Detectd) Urine Opiates Screen Not Detected (NotDetected) Ur Oxycodone Screen Not Detected (NotDetected) Urine Methadone Screen Not Detected (NotDetected) Ur Propoxyphene Screen Not Detected (NotDetected) Ur Barbiturates Screen Not Detected (NotDetected) U Tricyclic Antidepress Not Detected (NotDetected) Ur Phencyclidine Scrn Not Detected (NotDetected) Ur Amphetamines Screen Not Detected (NotDetected) U Methamphetamines Scrn Not Detected (NotDetected) U Benzodiazepines Scrn Not Detected (NotDetected) Urine Cocaine Screen Not Detected (NotDetected) U Marijuana (THC) Screen Detected H (NotDetected) Disposition Is patient prescribed a controlled substance at d/c from ED?: No Time of Disposition: 18:47 Decision to Admit Reason: Admit from EC Decision Date: 08/04/19 Decision Time: 15:00 <Betty Smiley - Last Filed: 08/04/19 18:42> <Andre Caballero - Last Filed: 08/04/19 19:14> Clinical Impression: Depression Disposition: TRANSFER TO PSYCH HOSP/UNIT Condition: Stable
[2019-08-04 12:20] LABS: Appearance,Urine Clear (Clear); Bacteria,Urine Rare /hpf; Bilirubin,Urine Negative (Negative); Blood,Urine Trace (Negative); Color,Urine Yellow; Glucose,Urine (UA) Negative (Negative); Ketones,Urine Negative (Negative); Leukocyte Esterase,Urine Negative (Negative); Mucus,Urine Occasional /hpf; Nitrite,Urine Negative (Negative); PH, Urine 6.5 (5.0-8.0); Protein,Urine Negative (Negative); RBC,Urine 3 /hpf (0-5); Specific Gravity,Urine 1.009 (1.001-1.035); Squamous Epithelial Cell,Urine 1 /hpf (0-4); Urobilinogen,Urine <2.0 mg/dL (<2.0); WBC,Urine <1 /hpf (0-5)
[2019-08-04 12:29] LABS: Amphetamine Screen,Urine Not Detected (NotDetected); Barbiturate Screen,Urine Not Detected (NotDetected); Benzodiazepines Screen,Urine Not Detected (NotDetected); Cocaine Screen,Urine Not Detected (NotDetected); Methadone Screen, Urine Not Detected (NotDetected); Opiate Screen,Urine Not Detected (NotDetected); Oxycodone Screen, Urine Not Detected (NotDetected); Phencyclidine Screen,Urine Not Detected (NotDetected); Tricyclic Antidepressant,Urine Not Detected (NotDetected); Urn Cannabinoid Scrn Detected (NotDetected)
[2019-08-04] MEDS ORDERED: MAGNESIUM HYDROXIDE 2,400 MG/10 ML CUP PO PRN (13:55)
[2019-08-04] MEDS ORDERED: ZIPRASIDONE 20 MG VIAL IM PRN (13:55)
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
--- NOTE | 2019-08-04 16:49 | P.HPMEDMHU ---
History of Present Illness H&P Date: 08/04/19 Chief Complaint: depression Patient is a 39-year-old female with a past medical history of hypertension not currently on medications, irritable bowel syndrome, endometriosis, and chronic low back pain who is currently admitted to mental health unit for depression. Patient seen and examined. She reports that she is in her normal state of health other than having periods less frequently and heavy periods associated with lots of cramping. She lost her insurance several years ago and was not qualified for Medicaid last time she applied. She reports that since her anxiety and depression have been acting up she has lost approximately 30 pounds. She is having intermittent nausea. Decreased appetite. Intermittent insomnia. And intermittent diarrhea. She feels as though all of those are related to her depression. She states that sometimes she cannot sleep and then recently she slept for 4 days in a row. Review of Systems Pertinent positives and negatives as discussed in HPI, a complete review of systems was performed and all other systems are negative. Past Medical History Past Medical History: Hypertension Additional Past Medical History / Comment(s): IBS, ENDOMETRIOSIS, opiate addiction, ADHD, Hx of HTN but no meds; Low back pain radiating down R leg. History of Any Multi-Drug Resistant Organisms: None Reported Past Surgical History: Tubal Ligation Additional Past Surgical History / Comment(s): LAPAROSCOPY, D & C, ORAL SURGERY Past Anesthesia/Blood Transfusion Reactions: Motion Sickness Past Psychological History: ADD/ADHD, Anxiety, Depression Smoking Status: Current every day smoker Past Alcohol Use History: None Reported Past Drug Use History: None Reported - Past Family History Father Family Medical History: Cancer Additional Family Medical History / Comment(s): Father at age 35 from cancer of the mouth. Mother Family Medical History: No Reported History Additional Family Medical History / Comment(s): Mother is age 70 with no major medical problems. Brother(s) Family Medical History: No Reported History Additional Family Medical History / Comment(s): Patient had 2 brothers. One of a motor vehicle accident at age 35 and 1 has no major medical problems. Patient has 1 sister with no major medical problems. Medications and Allergies Home Medications Medication Instructions Recorded Confirmed Type ARIPiprazole [Abilify Maintena] 300 mg IM QMONTH #1 [email or web address] 01/02/18 Rx ARIPiprazole [Abilify] 10 mg PO DAILY #11 tab 05/07/18 Rx Ibuprofen [Motrin] 400 mg PO Q6HR PRN tab 01/02/18 Rx Melatonin 3 mg PO HS #28 tablet 01/02/18 Rx hydrOXYzine PAMOATE [Vistaril] 25 mg PO TID PRN #20 cap 01/02/18 Rx Allergies Allergy/AdvReac Type Severity Reaction Status Date / Time No Known Allergies Allergy Verified 12/30/17 04:34 Physical Exam Osteopathic Statement: *. No significant issues noted on an osteopathic structural exam other than those noted in the History and Physical/Consult. Vitals: Vital Signs Temp Pulse Pulse Resp BP BP Pulse Ox 08/04/19 16:37 97.5 F L 80 16 145/88 99 08/04/19 13:57 97.9 F 73 16 141/78 100 08/04/19 11:44 76 138/92 100 08/04/19 11:13 98.0 F 76 19 130/85 98 Intake and Output 08/04/19 08/04/19 08/04/19 06:59 14:59 22:59 Other: Weight 97.159 kg 94.892 kg General: non toxic, no distress, appears at stated age, normal weight, disheveled Derm: no unusual rashes/lesions no unusual ecchymoses, warm, dry Head: atraumatic, normocephalic, symmetric Eyes: EOMI, no lid lag, anicteric sclera, pupils equal round reactive to light ENT: Nose and ears atraumatic, no thrush, no pharyngeal erythema Neck: No thyromegaly, no cervical lymphadenopathy, trachea midline, supple Mouth: no lip lesion, mucus membranes moist Cardiovascular: S1S2 reg, no murmur, positive posterior tibial pulse bilateral, no edema, capillary refill less than 2 seconds Lungs: CTA bilateral, no rhonchi, no rales , no accessory muscle use Abdominal: soft, nontender to palpation, no guarding, no appreciable organomegaly, normal bowel sounds Ext: no gross muscle atrophy, muscle strength 5 out of 5 in all 4 extremities grossly, no contractures, Neuro: CN II-XI grossly intact, light touch intact all 4 extremities, finger to nose within normal limits, Psych: Alert, oriented, flat affect Cranial Nerve Examination - Cranial Nerves Cranial Nerve II- Optic: Intact Cranial Nerve III- Oculomotor: Intact Cranial Nerve IV- Trochlear: Intact Cranial Nerve V- Trigeminal: Intact Cranial Nerve - Abducens: Intact Cranial Nerve VII- Facial: Intact Cranial Nerve VIII- Auditory: Intact Cranial Nerve IX- Glossopharyngeal: Intact Cranial Nerve X- Vagus: Intact Cranial Nerve XI- Accessory: Intact Cranial Nerve XII- Hypoglossal: Intact Results Labs: Abnormal Lab Results - Last 24 Hours (Table) 08/04/19 Range/Units 12:12 Urine Blood Trace H (Negative) Urine Bacteria Rare H (None) /hpf Urine Mucus Occasional H (None) /hpf U Marijuana (THC) Screen Detected H (NotDetected) Thrombosis Risk Factor Assmnt - DVT/VTE Prophylaxis DVT/VTE Prophylaxis: Low risk, early ambulation encouraged Assessment and Plan Assessment: Irregular Menses -Should be seen by primary care practitioner in the outpatient setting for a pelvic exam, possible hormone studies to assess for early menopause -Await CBC. We'll assess for anemia. History of hypertension, not currently on medications -Continue to check blood pressures -Possible need for blood pressure medication if remains elevated Depression -Your psych management Thank you for allowing us to participate in the care of this pleasant patient. Do not hesitate to contact us with questions. Someone can be reached from the [facility] hospitalist group all hours of the day at [phone] or via [employer].
[2019-08-04] MEDS: NICOTINE 21MG/24HR PATCH TRANSDERM SCH (16:56)
[2019-08-04] MEDS: DULoxetine HCL 60 MG CAPSULE.DR PO SCH (16:56)
[2019-08-04] MEDS: ACETAMINOPHEN TAB 325 MG TAB PO PRN (21:26)
[2019-08-04] MEDS: LORazepam 1 MG TAB PO PRN (21:26)
[2019-08-05] MEDS: MAG HYDROX/AL HYDROX/SIMETH 30 ML CUP PO PRN ×2 (03:14→09:30)
[2019-08-05 07:59] LABS: Basophils % (A) 0 %; Eosinophils # (A) 0.1 k/uL (0-0.7); Eosinophils % (A) 1 %; HCT 44.7 % (34.0-46.0); HGB 14.9 gm/dL (11.4-16.0); Lymphocytes # (A) 2.6 k/uL (1.0-4.8); Lymphocytes % (A) 27 %; MCHC 33.3 g/dL (31.0-37.0); MCV 84.1 fL (80.0-100.0); Mean Platelet Volume 7.3; Monocytes # (A) 0.3 k/uL (0-1.0); Monocytes % (A) 4 %; Neutrophils # (A) 6.4 k/uL (1.3-7.7); Neutrophils % (A) 67 %; Platelet Count 282 k/uL (150-450); RBC 5.31 m/uL (3.80-5.40); RDW 12.9 % (11.5-15.5); WBC 9.5 k/uL (3.8-10.6)
[2019-08-05 08:12] LABS: ALT 25 U/L (9-52); AST 17 U/L (14-36); African American GFR (CKD) >90 (>60 ml/min/1.73 sqM); Albumin 4.5 g/dL (3.5-5.0); Alkaline Phosphatase 58 U/L (38-126); Anion Gap 9 mmol/L; Blood Urea Nitrogen 13 mg/dL (7-17); Calcium 9.7 mg/dL (8.4-10.2); Carbon Dioxide 25 mmol/L (22-30); Chloride 107 mmol/L (98-107); Cholesterol 168 mg/dL (<200); Glucose 90 mg/dL (74-99); HDL Cholesterol 63 mg/dL (40-60); LDL Cholesterol,Calculated 86 mg/dL (0-99); Non-African American GFR(CKD) >90 (>60 ml/min/1.73 sqM); Potassium 4.5 mmol/L (3.5-5.1); Sodium 141 mmol/L (137-145); Total Bilirubin 0.6 mg/dL (0.2-1.3); Total Protein 7.6 g/dL (6.3-8.2); Triglycerides 94 mg/dL (<150)
[2019-08-05] MEDS: NICOTINE 21MG/24HR PATCH TRANSDERM SCH (09:29)
[2019-08-05] MEDS: DULoxetine HCL 60 MG CAPSULE.DR PO SCH (09:29)
--- NOTE | 2019-08-05 14:41 | P.PN ---
Progress Note - Text Interval history: The patient is found in group she follows me to an interview room. She indicates things are better but has some difficulty explaining how. She states that she is glad she is back on the Cymbalta. She had no visitors last evening as she put no one on her list. She states that she slept last night staff reported she slept 6 hours. Appetite stable. She spontaneously states that she has been noticing things around the mental health unit that may refer to her life but quickly states "that's not psychotic thinking". Mental status exam: The patient is a female appearing her stated age she presents with adequate hygiene and fair grooming she is dressed in her own clothing and is covered with a blanket over top. She has appropriate eye contact. Speech is fluent spontaneous nonpressured. Overall she appears guarded and somewhat suspicious. She is concerned as to how I am assessing her and what judgments I may make. She denies having any auditory or visual hallucinations she indicates she feels safe. She reports she does not feel watched or followed she reports feeling as though she is in no danger. She endorses no ideas of reference. She may be experiencing symptoms of psychosis however. Insight and judgment limited. She reports no suicidal or homicidal ideation intent or plan. She is seated in the chair and shakes her leg throughout the session. Plan: The patient will continue on the Cymbalta. She continues to refuse any involuntary antipsychotic medication. We will continue to monitor for necessity of that type of medication. We will monitor her for safety and encourage participation in the milieu. Vital signs reviewed.
[2019-08-05] MEDS: LORazepam 1 MG TAB PO PRN (23:59)
[2019-08-06] MEDS: NICOTINE 21MG/24HR PATCH TRANSDERM SCH (08:51)
[2019-08-06] MEDS: DULoxetine HCL 60 MG CAPSULE.DR PO SCH (08:51)
[2019-08-06 11:13] LABS: Hemoglobin A1C 4.9 % (4.0-6.0)
[2019-08-06] MEDS ORDERED: DULoxetine HCL 30 MG CAPSULE.DR PO ONE (13:48)
[2019-08-06] MEDS: hydrOXYzine PAMOATE 25 MG CAP PO PRN (13:53)
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
[2019-08-06] MEDS: ACETAMINOPHEN TAB 325 MG TAB PO PRN (16:23)
[2019-08-06] MEDS: MAG HYDROX/AL HYDROX/SIMETH 30 ML CUP PO PRN (19:16)
[2019-08-06] MEDS: MELATONIN 3 MG TABLET PO SCH (21:15)
[2019-08-07] MEDS: hydrOXYzine PAMOATE 25 MG CAP PO PRN ×3 (00:04→20:52)
[2019-08-07] MEDS: NICOTINE 21MG/24HR PATCH TRANSDERM SCH (08:57)
[2019-08-07] MEDS: DULoxetine HCL 30 MG CAPSULE.DR PO SCH (08:58)
[2019-08-07] MEDS: ACETAMINOPHEN TAB 325 MG TAB PO PRN (12:40)
--- NOTE | 2019-08-07 15:52 | P.PN ---
Progress Note - Text Progress Note Date: 08/07/19 Interval History: Patient was seen after lunch and was directable and agreeable to advertising copywriter in the office. Patient appeared to be anxious as soon as she sat down in the office and looked at underwriter and tearfully stated that "why are you doing this to me why are you sending everybody to be against me". Patient claims that she feels frustrated with underwriter and endorsed paranoia believing that other people are sent by underwriter to harm patient. She claims that she is feeling anxious and was focused on discharge during the interview. Patient repeatedly explained that she wanted to go back home to her children and she did not want to be on the unit. Patient claims that she feels medication is not helping her. She claims that she has not been going to groups and has been staying in her room. Patient claims that being in the hospital is making her more "stressed". She states that her mood is depressed. She states that she had fair sleep last night and has fair energy during the day. Patient was visibly upset throughout the entire interview and was difficult to redirect however eventually able to take deep breaths and wanted to speak to medication nurse. At this time patient denies any suicidal or homical ideations, intent or plan. Patient denies any auditory, visual hallucinations. Patient denies any side effects from the medications and has been compliant with meds. Mental Status Exam: General Appearance: Patient appears to be stated age is alert, uncooperative and visibly upset. Fair hygiene and grooming. Tearful. Behavior: Patient is calmly seated without any agitated behavior. Upset and tearful. Speech: Patient's speech is fluent and nonpressured. Mood/Affect: Mood is "angry", affect is congruent and tearful. Suicidality/Homicidality: Patient denies having any suicidal or homicidal ideation intent or plan. Perceptions: Patient denies any auditory or visual hallucinations. Though content/process: Endorses some paranoia towards underwriter and other people on the unit. Memory and concentration: AOX3, grossly intact for the purposes of this session Judgment and insight: Poor Assessment Major depressive disorder, with psychotic features rule out substance-induced psychosis Anxiety disorder unspecified History of opiate use disorder Cannabis use disorder Alcohol use disorder Stimulant abuse Plan: -Patient continues to meet criteria for inpatient psychiatric admission for symptom stabilization and safety. Patient has signed adult voluntary form and medication consent and was placed in patient's chart. -Medications: Will [place] with Cymbalta to 90 mg today for depression/anxiety. Will increase Vistaril 50 mg every 8 hours when necessary for anxiety, as per patient request. Melatonin 3 mg daily at bedtime for sleep. Will start Risperdal 1 mg daily at bedtime for psychosis/paranoia and plan to titrate up as tolerated. -When necessary Geodon and Ativan for agitation/aggression. -NRT - nicotine patch -SW on board for discharge planning. We will be offering patient substance use treatment, likely rehab if patient is willing to accept.
[2019-08-07] MEDS ORDERED: hydrOXYzine PAMOATE 25 MG CAP PO PRN (15:55)
[2019-08-07] MEDS: LORazepam 1 MG TAB PO PRN ×2 (17:52→22:10)
[2019-08-07] MEDS: MELATONIN 3 MG TABLET PO SCH (20:52)
[2019-08-07] MEDS: risperiDONE ODT 1 MG TAB PO SCH (20:52)
[2019-08-08] MEDS: DULoxetine HCL 30 MG CAPSULE.DR PO SCH (08:45)
[2019-08-08] MEDS: LORazepam 1 MG TAB PO PRN (08:45)
[2019-08-08] MEDS: NICOTINE 21MG/24HR PATCH TRANSDERM SCH (08:45)
[2019-08-08] MEDS: hydrOXYzine PAMOATE 25 MG CAP PO PRN ×2 (10:31→17:41)
--- NOTE | 2019-08-08 13:35 | P.PN ---
Progress Note - Text Progress Note Date: 08/08/19 Interval History: Patient was seen after lunch and was directable and agreeable to caption writer in the office. Patient appeared to be much more cooperative and directable during conversation today. Patient was also more organized in her thought content and process and reflected back on yesterday stated that "I was a mess and I was feeling way too paranoid" patient also claimed that "I was thinking that you were telling other people to keep their eye out for me and trying to harm me but I was way wrong". Patient reflected back and states that she does not feel paranoid at all today and needed time to calm down and has been taking her medications. She continues to have superficial insight and was superficially cooperative with caption writer about taking medications. Patient continues to be focused on discharge and spoke about taking care of her kids and wanting to stay away from drugs. Patient was offered to go to inpatient rehab however patient claimed "absolutely not I'm never going back there again". Patient reflected back on in the past when she went to rehab to [facility] and left after 2 days. She states that she slept well last night and had a dream which he described a caption writer. She also states that her appetite has improved and her energy as well. She claims that her anxiety and mood have been improving. At this time patient denies any suicidal or homical ideations, intent or plan. Patient denies any auditory, visual hallucinations. Patient denies any side eff ects from the medications and has been compliant with meds. Mental Status Exam: General Appearance: Patient appears to be stated age is alert, is directable more cooperative today. Fair hygiene and grooming. Behavior: Patient is calmly seated without any agitated behavior. Superficially cooperative. Speech: Patient's speech is fluent and nonpressured. Mood/Affect: Mood is "better", affect is congruent Suicidality/Homicidality: Patient denies having any suicidal or homicidal ideation intent or plan. Perceptions: Patient denies any auditory or visual hallucinations. Less paranoid today. Though content/process: Improvement in her paranoia. More organized and goal oriented/logical Memory and concentration: AOX3, grossly intact for the purposes of this session Judgment and insight: Improving. Assessment Major depressive disorder, with psychotic features rule out substance-induced psychosis Anxiety disorder unspecified History of opiate use disorder Cannabis use disorder Alcohol use disorder Stimulant abuse Plan: -Patient continues to meet criteria for inpatient psychiatric admission for symptom stabilization and safety. Patient has signed adult voluntary form and medication consent and was placed in patient's chart. -Medications: Will continue with Cymbalta to 90 mg today for depression/anxiety. Will continue with Vistaril 50 mg every 8 hours when necessary for anxiety, as per patient request. Increased Melatonin 6 mg daily at bedtime for sleep. Will continue with Risperdal 1 mg daily at bedtime for psychosis/paranoia -When necessary Geodon for agitation/aggression. -NRT - nicotine patch -SW on board for discharge planning. [facility] offered substance abuse treatment and rehab however patient declined adamantly and states that she will be following up with [facility] for outpatient addiction services. Patient likely discharge in 1-2 days back home.
[2019-08-08] MEDS: MAG HYDROX/AL HYDROX/SIMETH 30 ML CUP PO PRN (14:08)
[2019-08-08] MEDS ORDERED: MELATONIN 3 MG TABLET PO SCH (21:00)
[2019-08-08] MEDS: risperiDONE ODT 1 MG TAB PO SCH (21:25)
[2019-08-09 06:52] VITALS: BP 127/75; PULSE 71; RESP 18; TEMP 98.1
[2019-08-09] MEDS: DULoxetine HCL 30 MG CAPSULE.DR PO SCH (08:31)
[2019-08-09] MEDS: NICOTINE 21MG/24HR PATCH TRANSDERM SCH (08:31)
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
[2019-08-09] MEDS: ACETAMINOPHEN TAB 325 MG TAB PO PRN (11:06)
[2019-08-09] MEDS: hydrOXYzine PAMOATE 25 MG CAP PO PRN (13:46)
== END 2019-08-09 14:31 | disposition home or self-care (01) | DRG 885 ==
LOC: EC 10:17 → 3MHU 13:53
PROVIDERS: ADMIT Psychiatry & Neurology Psychiatry; ATTEND Psychiatry & Neurology Psychiatry
DX: F32.3 Major depressive disorder, single episode, severe with psychotic features (principal); F10.10 Alcohol abuse, uncomplicated; F12.10 Cannabis abuse, uncomplicated; F15.10 Other stimulant abuse, uncomplicated; F41.9 Anxiety disorder, unspecified; I10 Essential (primary) hypertension; F17.200 Nicotine dependence, unspecified, uncomplicated; Z79.899 Other long term (current) drug therapy; Z80.8 Family history of malignant neoplasm of other organs or systems; Z98.51 Tubal ligation status; Z98.890 Other specified postprocedural states
CPT/HCPCS: 80053; 80061; 80306; 81001; 81025; 82075; 83036; 84443; 85025; 99285

== ENCOUNTER → 2021-03-13 | Outpatient (CLI) | payer OTHER ==
--- NOTE | 2021-03-13 10:03 | USB ---
EXAMINATION TYPE: US breast limited BILAT DATE OF EXAM: 03/13/2021 COMPARISON: Mammogram same date CLINICAL HISTORY: R92.8 abnormal mammogram. Findings: The left breast was scanned with ultrasound at 12:00, 6-9:00 and in the retroareolar region and axill a. The right breast was scanned with ultrasound at 11:00 in the region of palpable abnormality. The p alpable abnormality corresponds with a simple cyst measuring up to 1.1 cm which corresponds well in s ize, location pathology to the asymmetry on mammogram. There are multiple simple and clustered cysts noted in the left breast, 2 of which correspond to the asymmetry on mammogram. These lesions are pres umed benign due to multiplicity and bilaterality. IMPRESSION: No sonographic evidence for malignancy. Simple cyst corresponds to the palpable abnormality of the right breast. Clinical follow-up is recomm ended. Screening mammogram is recommended in one year. BI-RADS 2, benign.
--- NOTE | 2021-03-13 12:08 | MM ---
Reason for exam: clinical finding. Last mammogram was performed 9 years and 11 months ago. History: Took hormonal contraceptives for 8 years beginning at age 18. Indicated problem(s): lump or thickening in the right breast. Physical Findings: Nurse Summary: 2cm nodule in the right breast at 10-11 o'clock (nurse db). MG 3D Diag Mammo W/Cad HUANG Bilateral CC and MLO view(s) were taken. No prior studies available for comparison. There are scattered fibroglandular densities. There is a mass in the right upper outer quadrant at the site of palpable and ultrasound is recommended. Two asymmetries left breast, central middle depth 5mm, 7-8cm from nipple and inferior inner anterior depth 4mm, 3cm from nipple. These results were verbally communicated with the patient and result sheet given to the patient on 03/13/21. ASSESSMENT: Incomplete: need additional imaging evaluation, BI-RAD 0 RECOMMENDATION: Ultrasound of both breasts.
== END | disposition home or self-care (01) ==
LOC: RADMAMWWP 08:13
PROVIDERS: ATTEND Family Medicine
DX: N60.01 Solitary cyst of right breast (principal); N60.02 Solitary cyst of left breast
CPT/HCPCS: 77066; 76642; G0279; 77062

== ENCOUNTER → 2022-05-17 | Outpatient (CLI) | payer OTHER ==
--- NOTE | 2022-05-18 09:00 | MM ---
Reason for Exam: Screening (asymptomatic). Last mammogram was performed 1 year(s) and 2 month(s) ago. Patient History: Menarche at age 15. First Full-Term at age 21. Hormonal Contraceptives for 8 years from age 18 until age 30. Last menstrual period: 04/23/2022 Risk Values: Deepthi 5 year model risk: 0.5%. NCI Lifetime model risk: 8.1%. Prior Study Comparison: 06/26/2007 Bilateral Diagnostic Mammogram, [facility]. 04/20/2011 Bilateral Diagnostic Mammogram, [facility]. 03/13/2021 Bilateral Diagnostic Mammogram, [facility]. Tissue Density: The breast tissue is heterogeneously dense. This may lower the sensitivity of mammography. Findings: Analyzed By CAD. There is no suspicious group of microcalcifications or new suspicious mass in either breast. Stable nodularity within both breasts. No significant change from prior exams. Overall Assessment: Benign, BI-RAD 2 Management: Screening Mammogram of both breasts in 1 year. A clinical breast exam by your physician is recommended on an annual basis and results should be correlated with mammographic findings. Electronically signed and approved by: Ken Nieto D.O.
== END | disposition home or self-care (01) ==
LOC: RADMAMWWP 12:41
PROVIDERS: ATTEND Family Medicine
DX: Z12.31 Encounter for screening mammogram for malignant neoplasm of breast (principal)
CPT/HCPCS: 77063; 77067